=== PATIENT | female | born 1975 | race Caucasian/White ===

== ENCOUNTER → 2020-09-13 | Outpatient (CLI) | payer OTHER ==
[~2020-09-13] MED LIST: ASPI81TA59 PO; ENOX30SY4 SQ; HEPA1DIS12 SQ; IBUP-1222 PO; LABE100T6 PO; LABE200T6 PO; OXYC1TAB7 PO; PREN1TAB60 PO; PROG200C10 RC
== END | disposition home or self-care (01) ==
LOC: CFH 10:56
PROVIDERS: ATTEND Obstetrics & Gynecology Maternal & Fetal Medicine
DX: Z12.31 Encounter for screening mammogram for malignant neoplasm of breast (principal); N60.02 Solitary cyst of left breast
CPT/HCPCS: 77063; 77067